=== PATIENT | male | born 1940 | race Caucasian/White ===

== ENCOUNTER 2016-05-08 14:47 | Emergency (ER) | payer MEDICARE, OTHER ==
[~2016-05-08] VITALS: Ht 177.8 cm; Wt 81.8 kg
[2016-05-08 14:53] VITALS: BP 149/71; PULSE 75; RESP 18; O2SAT 97
--- NOTE | 2016-05-08 15:15 | ED.REPORT ---
HPI-General Illness Date of Service May 08, 2016 ED Provider: Dr. Ramos Pt is a 76 y/o relatively healthy male w/ a hx of alcohol abuse presenting to the ED with his with multiple medical complaints onset 5 days ago. He c/o dry cough, chest congestion, 2 episodes of dry heaving (usually after cough), nausea, diarrhea, chills. He denies vomiting, abdominal pain, SOB, CP. Nursing Notes Stated Complaint: COUGH Chief Complaint: FLU/Cold Symptoms Nursing Notes Reviewed: Yes Allergies: Coded Allergies: No Known Allergies (Unverified , 05/08/16) Scheduled Magnesium Chloride (Slow-Mag) 64 Mg Tablet 64 MG PO BID General Time Seen by MD: 15:14 Chief Complaint Multip medical complaints Hx Obtained From: Patient Arrived By: Walk-in Sudden in Onset?: No Onset Occurred: 5 days ago Symptom Duration: Since onset Severity: Current: No pain currently Severity: Maximum: No pain Past Medical History Past Medical History None Reported Past Surgical History Partial Thoractomy Shoulder Surgery Reports: Cholecystectomy Social History Alcohol Use: 3-5 per day Ambulatory Status Independent Review of Systems Full Review of Systems Constitutional: Reports: Chills, Denies: Fever Respiratory: Reports: Non-productive cough, Denies: Prod cough, green, Prod cough, yellow, Shortness of breath Cardiovascular: Denies: Chest pain GI: Reports: Diarrhea, Nausea, Denies: Abdominal pain, Vomiting Complete sys rev & neg: except as marked. Physical Exam Vital Signs Vital Signs Date Time Temp Pulse Resp B/P Pulse Ox O2 Delivery O2 Flow Rate FiO2 05/08/16 18:23 74 17 141/72 97 Room Air 05/08/16 15:53 72 97 Room Air 05/08/16 14:53 37.0 75 18 149/71 97 Room Air Initial VS: Reviewed, Vital signs normal Head / Eyes: Atraumatic, Normocephalic, PERRL ENT: Mucous membranes moist, Conjunctiva normal, No scleral icterus Neck: Supple, Full range of motion Respiratory: Breath sounds normal, Clear to auscultation, No respiratory distress Cardiovascular: Regular rate & rhythm, Heart sounds normal, Intact distal pulses Abdomen / GI: Soft, Non-tender, No guarding, No rebound, No distention Extremities: Vascular intact, Neuro intact, No swelling, No tenderness Skin: Warm, Dry, No cyanosis Neurologic: Alert, Oriented, Nonfocal Psychiatric: Mood/affect normal, Behavior normal, Normal thought content General/Constitutional: Awake, Alert, No acute distress, Cooperative, Not toxic appearing Interpretation & Diagnostics Lab Results Interpretation Result Diagram: 05/08/16 1618 05/08/16 1618 Test 05/08/16 16:18 05/08/16 17:00 White Blood Count 3.4th/mm3 (3.8-10.1) Red Blood Count 3.51mil/mm3 (4.40-5.80) Hemoglobin 12.8g/dL (13.8-17.2) Hematocrit 36.9% (41.0-50.0) Mean Corpuscular Volume 105.1fL (81-100) Mean Corpuscular Hemoglobin 36.5pg (27.0-35.0) Mean Corpuscular Hemoglobin Concent 34.7% (32.0-37.0) Red Cell Distribution Width 12.2% (12.3-15.4) Platelet Count 102bil/L (150-400) Neutrophils (%) (Auto) 54.0% (40-74) Lymphocytes (%) (Auto) 23.3% (14-46) Monocytes (%) (Auto) 20.9% (4-12) Eosinophils (%) (Auto) 0.9% (0-5) Basophils (%) (Auto) 0.6% (0-3) Prothrombin Time 10.7sec (8.1-12.5) Prothromb Time International Ratio 1.00ratio Activated Partial Thromboplast Time 27.8sec (22.8-33.0) Sodium Level 139mEq/L (134-144) Potassium Level 3.8mEq/L (3.5-5.2) Chloride Level 102mEq/L (97-108) Carbon Dioxide Level 18mmol/L (18-29) Blood Urea Nitrogen 14mg/dL (8-27) Creatinine 0.97mg/dL (0.76-1.27) Estimat Glomerular Filtration Rate 80mL/min (>59) Glucose Level 75mg/dL (60-99) Lactic Acid Level 2.7mmol/L (0.4-2.0) Calcium Level 8.6mg/dL (8.5-10.1) Magnesium Level 1.3mg/dL (1.6-2.6) Total Bilirubin 0.6mg/dL (0.0-1.2) Aspartate Amino Transf (AST/SGOT) 174U/L (0-50) Alanine Aminotransferase (ALT/SGPT) 55U/L (0-44) Alkaline Phosphatase 91U/L (25-160) Troponin T < 0.010ug/L (0.0-0.011) Pro-B-Type Natriuretic Peptide 1903pg/mL (0-486) Total Protein 6.9g/dL (6.4-8.4) Albumin 3.6g/dL (3.4-5.0) Urine Color Yellow (YELLOW) Urine Appearance Clear (CLEAR,HAZY) Urine pH 6.0 (5.0-8.0) Urine Specific [place] 1.010 (1.003-1.035) Urine Protein Negativemg/dL (NEG,TRACE) Urine Glucose (UA) Negativemg/dL (NEGATIVE) Urine Ketones Tracemg/dL (NEGATIVE) Urine Occult Blood Negative (NEGATIVE) Urine Nitrite Negative (NEGATIVE) Urine Bilirubin Negative (NEGATIVE) Urine Urobilinogen Normalmg/dL (NORMAL) Urine Leukocyte Esterase Negative (NEGATIVE) Urine RBC 0-2/hpf (0-2) Urine WBC 0-5/hpf (0-5) Urine Epithelial Cells Moderate/hpf (NONE-MOD) Urine Crystals None seen (NONE SEEN) Urine Bacteria Few/hpf (NONE-FEW) Urine Hyaline Casts None/lpf (NONE) Urine Granular Casts None seen (NONE SEEN) Urine Waxy Casts None seen (NONE SEEN) Urine Red Blood Cell Casts None seen (NONE SEEN) Urine White Blood Cell Casts None seen (NONE SEEN) Urine Mucus None seen (None Seen) Urine Trichomonas None seen (NONE SEEN) Urine Yeast None (NONE SEEN) Urinalysis Comment None Urine Culture Reflexed Not indicated Lab Results Interpretation: Rapid flu: negative ECG Interpretation ECG Interpretation: Sinus rhythm rate 78 Couplet at end of tracing LBBB LAE Similar to previous Time: 16:10 Interpreted by: ED physician Normal ECG Interpretation: No acute ischemic changes X-Ray Chest Interpretation Chest Xray Interpretation: IMPRESSION: No acute process. Dictated by: Denis Gil M.D. on 05/08/2016 at 16:47 Approved by: Denis Gil M.D. on 05/08/2016 at 16:47 View: Portable, 1 view Interpretation / Wet Read by: Interpret - Radiologist Re-Eval/Medical Decision Med Decision/Clinical Course 76-year-old with a bronchospastic sounding cough and cough-vomiting. He also has had vomiting and diarrhea which appears to be resolving. Flu is negative. Chest x-ray shows no evidence of pneumonia. He is a former smoker, having quit fifteen years ago. No indication of bacterial pneumonitis. I was able dose of Decadron, albuterol puffer and spacer, Zofran for nausea control, and oral rehydration. He was also hypomagnesemic and Slow-Mag prescribed. Time of Eval: 17:50 Patient Status: Condition improved, Mild relief Re-Evaluation/Progress Note: Pt rechecked. Feeling mildly improved. Temp 37.5 C. Discussed labs and possibility of discharge. Breathing treatment did not help. Still has unproductive cough. He would like to go home at this time. I believe this is appropriate. Close follow-up recommended. Informed pt of plan for treatment. Pt understands and agrees with plan for treatment. F/U instructions and RTER warnings given. All questions addressed. Counseled Regarding: Diagnosis, Lab results, Need for follow-up, When/why to return to ED Discharge & Departure Primary Impression: Bronchitis Additional Impressions: Diarrhea Hypomagnesemia Disposition: Home Discharge Condition All VS Reviewed: Yes Condition: Stable Patient Instructions: Acute Diarrhea (ED), Dehydration (ED), Reactive Airways Disease (ED) Additional Instructions: Zofran if needed for nausea, up to four times daily. Maintain hydration with water or Gatorade or similar. Albuterol two puffs with spacer four times daily if needed for cough. Return if worse despite treatment. There is no indication from your x-ray or lab that you have a bacterial infection. It appears to be viral. Antibiotics are not likely helpful for this , but may be harmful. Your magnesium is low and needs supplementation. Take Slow-Mag twice daily for the next 3-4 weeks Referrals: Amandeep Henrandez MD (PCP) Scribe Attestation Portions of this note were transcribed by Schuyler Eason. I, Dr. Ramos personally performed the history, physical exam and medical decision-making; I reviewed and confirmed the accuracy of the information in the transcribed note. Signed by Caroline Graham, 05/08/16 - 1600 copies to: Amandeep Hernandez MD, Christopher W MD May 08, 2016 15:15 SCHUYLER EASON May 08, 2016 15:25
[2016-05-08] MEDS ORDERED: 0.9% Sodium Chloride 1,000 ML IV ONE (15:34)
[2016-05-08] MEDS ORDERED: Albuterol 2.5 mg/3 mL Inhalation Solution NEB ONE (15:35)
[2016-05-08] MEDS ORDERED: Albuterol-Ipratropium 3 mL Inhalation Solution NEB ONE (15:35)
[2016-05-08 15:53] VITALS: PULSE 72; O2SAT 97
[2016-05-08 16:21] LABS: BASOPHILS % (AUTO) 0.6 % (0-3); EOSINOPHILS % (AUTO) 0.9 % (0-5); MONOCYTES % (AUTO) 20.9 % (4-12); Mean Corpuscular Hemoglobin 36.5 pg (27.0-35.0); Mean Corpuscular Volume 105.1 fL (81-100); Platelet Count 102 bil/L (150-400)
[2016-05-08 16:46] LABS: Magnesium 1.3 mg/dL (1.6-2.6)
--- NOTE | 2016-05-08 16:48 | DRSVH ---
PROCEDURE: X-RAY CHEST, TWO VIEWS ([id number]) INDICATIONS: cough, sob TECHNIQUE: 2 views of the chest were acquired. COMPARISON: KYLE Glaser, XR CHEST 2VW, 04/30/2016, 10:32. [facility], KYLE, CHES T 2VW, 01/16/2011, 21:04. FINDINGS: Surgical changes and devices: Stable line projects over the left apex. Lungs and pleura: No pleural effusions or pneumothorax. Lungs are clear. Mediastinum: Mediastinal contours are normal. Heart size is normal. Bones and chest wall: No suspicious bony abnormalities. Soft tissues appear unremarkable. IMPRESSION: No acute process. Dictated by: Denis Gil M.D. on 05/08/2016 at 16:47 Approved by: Denis Gil M.D. on 05/08/2016 at 16:47
[2016-05-08 16:56] LABS: TROPONIN T < 0.010 ug/L (0.0-0.011)
[2016-05-08 17:17] LABS: APPEARANCE,URINE CLEAR (CLEAR,HAZY); COLOR,URINE YELLOW (YELLOW); OCCULT BLOOD,URINE NEGATIVE (NEGATIVE); UROBILINOGEN,URINE NORMAL (NORMAL)
[2016-05-08] MEDS ORDERED: _Albuterol-HFA 60 Puff Inhaler INHALATION PRN (18:00)
[2016-05-08] MEDS ORDERED: SLO64 PO (18:01)
[2016-05-08] MEDS ORDERED: Dexamethasone 10 mg/mL Inj IVPUSH ONE (18:05)
[2016-05-08 18:23] VITALS: BP 141/72; PULSE 74; RESP 17; O2SAT 97
== END 2016-05-08 18:24 | disposition home or self-care (01) ==
LOC: SED 14:47
DX: J40 Bronchitis, not specified as acute or chronic (principal); R19.7 Diarrhea, unspecified; E83.42 Hypomagnesemia; R11.10 Vomiting, unspecified; F10.20 Alcohol dependence, uncomplicated; Z87.891 Personal history of nicotine dependence
CPT/HCPCS: 36415; 71020; 80053; 81000; 83605; 83735; 83880; 84484; 85025; 85610; 85730; 87040; 87804; 93005; 94640; 94664; 96361; 96374; 99285; J1100; J7030; J7613; J7620